=== PATIENT | female | born 1985 | race Hispanic/Latino ===

== ENCOUNTER → 2020-08-13 | Outpatient (CLI) | payer OTHER ==
[~2020-08-13] MED LIST: COVID-19 VACC, MRNA(MODERNA)/PF 100 MCG/0.5 ML VIAL IM ONE
== END ==
LOC: VACCPMC 18:00
DX: Z23 Encounter for immunization (principal); Z20.822 Contact with and (suspected) exposure to COVID-19

== ENCOUNTER → 2020-09-10 | Outpatient (CLI) | payer OTHER | END | DRG 951 | LOC: VACCPMC 07:31 | DX: Z23 Encounter for immunization (principal); Z20.822 Contact with and (suspected) exposure to COVID-19 | CPT/HCPCS: 0012A; 91301 ==

== ENCOUNTER 2025-04-20 16:28 | Emergency (ER) | payer OTHER ==
[~2025-04-20] VITALS: Ht 149.9 cm; Wt 71.7 kg
[2025-04-20 16:48] VITALS: PULSE 75; RESP 16; TEMP 98.6; O2SAT 99
[2025-04-20] MEDS ORDERED: AMOX TR-K CLV1 EAC2 PO (16:58)
== END 2025-04-20 17:02 | disposition home or self-care (01) ==
LOC: ER 16:31
DX: S90.871A Other superficial bite of right foot, initial encounter (principal); W55.01XA Bitten by cat, initial encounter; Y92.89 Other specified places as the place of occurrence of the external cause; E03.9 Hypothyroidism, unspecified; F41.9 Anxiety disorder, unspecified
CPT/HCPCS: 99283